=== PATIENT | female | born 1990 | race African-American/Black ===

== ENCOUNTER 2019-04-29 07:23 | Emergency (ER) | payer OTHER ==
[~2019-04-29] VITALS: Ht 165.1 cm; Wt 83.9 kg
== END 2019-04-29 08:00 | disposition home or self-care (01) ==
LOC: FSED 07:23
DX: R05 Cough (principal); J20.9 Acute bronchitis, unspecified
CPT/HCPCS: 99282

== ENCOUNTER → 2020-03-06 | Outpatient (CLI) | payer OTHER | LOC: MAMMO 13:18 | PROVIDERS: ATTEND Nurse Practitioner Primary Care | DX: Z12.31 Encounter for screening mammogram for malignant neoplasm of breast (principal) | CPT/HCPCS: 77067 ==

== ENCOUNTER 2020-09-03 08:05 | Emergency (ER) | payer SELFPAY ==
[~2020-09-03] VITALS: Ht 165.1 cm; Wt 88.5 kg
== END 2020-09-03 08:46 | disposition home or self-care (01) ==
LOC: FSED 08:38
DX: M54.5 Low back pain (principal); M79.18 Myalgia, other site; R11.0 Nausea
CPT/HCPCS: 81003; 81025; 99283